=== PATIENT | female | born 1975 | race Caucasian/White ===

== ENCOUNTER → 2020-02-05 | Outpatient (CLI) | payer BC | LOC: COL.RAD 07:51 | DX: M25.531 Pain in right wrist (principal) | CPT/HCPCS: J3301; Q9967 ==

== ENCOUNTER → 2020-08-13 | Outpatient (CLI) | payer BC | LOC: MC.RAD 13:57 | DX: Z12.31 Encounter for screening mammogram for malignant neoplasm of breast (principal) ==

== ENCOUNTER 2021-05-04 16:10 | Outpatient (CLI) | payer BC ==
[~2021-05-04] VITALS: Ht 165.1 cm; Wt 100.9 kg
[2021-05-04 16:38] VITALS: BP 119/82; PULSE 76; TEMP 98.1
== END 2021-05-04 17:50 | disposition home or self-care (01) ==
LOC: LDRO 16:10
DX: O36.8330 Maternal care for abnormalities of the fetal heart rate or rhythm, third trimester, not applicable or unspecified (principal); Z3A.40 40 weeks gestation of pregnancy
CPT/HCPCS: J7120

== ENCOUNTER 2021-05-11 06:16 | Inpatient (IN) | payer BC ==
[~2021-05-11] VITALS: Ht 165.1 cm; Wt 100.0 kg
[2021-05-11] VITALS (16 sets, daily range): BP systolic 111–155; BP diastolic 60–93; PULSE 61–106; TEMP 97.6–98.4
[2021-05-11 07:12] LABS: BASO % 0.4 % (0.0-2.0); EOS # 0.1 (0.0-0.7); EOS % 1.2 % (0-4.0); GRAN # 8.1 (1.4-6.5); GRAN % 74.3 % (42.2-75.2); HEMOGLOBIN 12.3 g/dl (12.5-16.0); LYMPH # 1.6 (1.2-3.4); LYMPH % 14.3 % (20.0-51.0); MEAN CELL VOLUME 88 fl (80.0-100.0); MEAN CORPUSCULAR HEMOGLOBIN 30 pg (27.0-31.0); MEAN CORPUSCULAR HGB CONC 34 g/dl (33.0-37.0); MEAN PLATELET VOLUME 11.7 fl (7.4-10.4); MONO % 9.2 % (1.7-9.3); PLATELET COUNT 271 K/mm3 (130-400); RED BLOOD COUNT 4.14 M/mm3 (4.10-5.30); REDCELL DISTRIBUTION WIDTH-CV 12.6 % (11.5-14.5)
[2021-05-11 07:18] LABS: HEMATOCRIT 36.4 % (37.0-47.0)
--- NOTE | 2021-05-11 08:35 | NUR ---
ADMIT NOTE: PT. ARRIVED TO LDR UNIT AROUND 0620 AND WAS ESCORTED TO HER ROOM FROM NURSE. SHE WAS INSTRUCTED TO CHANGE INTO GOWN AND THEN PLACED ON MONITORS. VITAL SIGNS WERE WNL, REACTIVE STRIP, AND NO COMPLAINTS FOR PT. 18G WAS PLACED IN L LOWER FOREARM, NO EDEMA OR PAIN PER PT. LR WAS HUNG AND FLOWING WIHT NO COMPLICATIONS. PT. STATES NO COMPLICATIONS TODAY. CONSENTS WERE SIGNED, DISCUSSION OF POC WAS UNDERSTOOD AND VERBALIZED.
--- NOTE | 2021-05-11 10:08 | NUR ---
EPIDURAL: 0948: SHI MOSQUEDA AT BS 0950: TO; PT. STITING UP AT BS SIDE OF BED. 0958: TEST DOSE PT. TOLERATED EPIDURAL PLACEMENT WELL. NO COMPLAINTS. WILL CONTINUE TO MONITOR PT.
--- NOTE | 2021-05-11 12:08 | NUR ---
DELIVERY NOTE: PT. COMPLETE AT [address] PARKER CALLED. DR. PARKER AND NURSERY AT BS AT 1057 AND CHARGE NURSE CALLED FOR DELIVERY. PT. PLACED IN FOOT PEDALS AND BED BROKEN DOWN. DR. PARKER AT [facility]. PT. INSTRUCTED ON PUSHING AND PUSHED WITH CTX x2 AND DELIVERED VIABLE FEMALE INFANT W/ NUCHAL CORD X1. DR. PARKER REMAINS AT [facility] FOR LACERATION REPAIR AND CORD BLOOD SENT OFF FOR . DR. PARKER FINISHES REPAIR AND LEAVES BS WITH STABLE PT. PT. ENTERS RECOVERY PERIOD. WILL CONTINUE TO MONITOR PT. STATUS
--- NOTE | 2021-05-11 16:13 | NUR ---
NICHO responded to consult. The patient notified hospital staff that she is giving the baby up for adoption and doing a parking lot adoption. NICHO met with the patient alone. The patient confirms that she is giving the baby up for adoption to her brother and [id number]. She states that she has no questions or concerns for SW. She confirms that she will be doing the parking lot adoption. She will discharge with baby and then give the baby to her brother and [id number]. NICHO updated the OB charge nurse. No additional needs at this time.
[2021-05-12 01:45] VITALS: BP 122/53; PULSE 70; TEMP 97.9
[2021-05-12 08:24] VITALS: BP 144/85; PULSE 72; TEMP 97.7
[2021-05-12] MEDS ORDERED: IBU600 MG PO (10:03)
--- NOTE | 2021-05-12 12:44 | NUR ---
NICHO responded to consult. The patient notified hospital staff that she is giving the baby up for adoption. SW met with the patient alone. The patient confirms that she is giving the baby up for adoption to her brother and [id number]. The patient verbalized that she will discharge with baby and then pursue with the adoption after discharge. She had no other questions for concerns for SW. NICHO updated the OB charge nurse. No additional needs at this time.
[2021-05-12 16:49] VITALS: BP 149/88; PULSE 76; TEMP 97.8
[2021-05-12 17:13] VITALS: BP 116/72; PULSE 76
== END 2021-05-12 18:05 | disposition home or self-care (01) | DRG 807 ==
LOC: OB 06:16 → LDR 06:16 → OB 13:13
PROVIDERS: ADMIT Obstetrics & Gynecology
PROC: 10E0XZZ Delivery of Products of Conception, External Approach (ICD-10-PCS; principal; 2021-05-11)
PROC: 10907ZC Drainage of Amniotic Fluid, Therapeutic from Products of Conception, Via Natural or Artificial Opening (ICD-10-PCS; 2021-05-11)
PROC: 0UQMXZZ Repair Vulva, External Approach (ICD-10-PCS; 2021-05-11)
DX: O99.824 Streptococcus B carrier state complicating childbirth (principal); Z37.0 Single live birth; O69.81X0 Labor and delivery complicated by cord around neck, without compression, not applicable or unspecified; O71.82 Other specified trauma to perineum and vulva; Z3A.39 39 weeks gestation of pregnancy; Z86.16 Personal history of COVID-19
CPT/HCPCS: J1200; J2540; J2590; J7120